=== PATIENT | female | born 1940 | race Caucasian/White ===

== ENCOUNTER 2021-05-27 19:14 | Emergency (ER) | payer MEDICARE, SELFPAY ==
[2021-05-27 19:27] VITALS: BP 159/80; PULSE 90; RESP 18; TEMP 36.6; O2SAT 98
--- NOTE | 2021-05-27 19:30 | DI.RAD_ITS ---
Exam(s) XR WRIST RT LIMITED XR WRIST RT COMPLETE EXAM: XR WRIST RT COMPLETE CLINICAL HISTORY: fall, pain, deformity TECHNIQUE: COMPARISON: CR,XR XR WRIST RT LIMITED from 05/27/2021 FINDINGS: Three views of the wrist were obtained initially and show comminuted moderately displaced fracture of the distal radius with an associated ulnar styloid fracture. Post reduction radiographs show improv ed reduction of the radial fracture fragments with the wrist and forearm in a splint. No additional fracture seen. IMPRESSION: RADIATION DOSE DELIVERED: Total DLP
--- NOTE | 2021-05-27 19:45 | W.ED.GENAD ---
Discharge Plan Disposition Patient Disposition: HOME Condition: Stable Discharge Details Clinical Impression: Closed fracture of right radius and ulna Primary Care Provider: Zbigniew Pretty ED Provider: Jasiel Pwoell Home Meds and New Rx's Prescriptions: No Action arnica Tincture TOPICAL PRN PRNRF: 0 Discharge Instructions Instructions: Wrist Fracture in Adults (ED) Additional Instructions: Keep splint intact and dry. Use sling for comfort. No use of the right hand until cleared. Please follow-up with orthopedics, call on Sunday. Please take acetaminophen (tylenol) - 650mg every 6 hours by mouth as needed for pain. Please take ibuprofen over the counter. Take 600mg by mouth every 6 hours as needed for pain. Return to the emergency department immediately for any worsening or new concerning symptoms Referrals: [facility] [Provider Group] Zbigniew Pretty [Primary Care Provider] - Discharge Data Discharge Date/Time-TO BE ENTERED AT DEPARTURE: 05/27/21 22:30 Medical Decision Making 81-year-old female here with mechanical trip and fall with injury to right wrist. No other injury sustained during fall. Patient does have deformity to right wrist. Patient neurovascular intact distally. X-ray of the wrist was reviewed interpreted by radiology: Comminuted fracture of the distal right radial metaphysis with 25 degrees volar angulation and about 4 mm posterior displacement of the distal fragments not 8 mm impaction dorsally. Intra-articular fracture comminution into the distal radial articular surface noted in the distal fragment. Comminuted ulnar styloid fracture demonstrated on 3 to 4 mm displacement. Carpal relationships are normal. Patient provided verbal informed consent to hematoma block, joint reduction and sugar tong splint. Patient was given fentanyl 100 mcg and Zofran 4 mg. She tolerated reduction and splinting well. Repeat x-ray was reviewed and interpreted by me: Improved alignment and improved angulation. Case was discussed with Dr. Carmona who will see the patient in follow-up. Patient was provided a sling. Usual customary discharge instructions were reviewed with the patient. HPI General Mode of arrival: ambulatory. Date/Time Provider Initiated Documentation: 05/27/21 19:43. Limitations to Documentation: no limitations. Information obtained by: patient. HPI Narrative: 81-year-old female presents with chief complaint of right wrist pain. Patient notes she tripped and fell and landed on outstretched hand just prior to arrival. Pain is moderate and worse with any movement of the wrist. Pain is constant since fall. She notes she did not hit her head or lose consciousness. She has no chest pain or abdominal pain. No back pain or neck pain. No pelvic or hip pain Related Data Home Medications Medication Instructions Recorded Confirmed arnica ml TOPICAL PRN PRN 05/27/21 Allergies Allergy/AdvReac Type Severity Reaction Status Date / Time No Known Allergies Allergy Unverified 05/27/21 19:33 General Stated Complaint: Orthopedic HERNANDO: 4 Review of Systems All systems reviewed & are unremarkable except as noted in HPI and below Constitutional Constitutional: Denies fever(s) Cardiovascular Cardiovascular: Reports as per HPI Respiratory Respiratory: Reports as per HPI Musculoskeletal Musculoskeletal: Reports as per HPI FORMERLY [facility], [facility]–1983 Social History Smoking/Tobacco Use Status: Never Smoking risk assessment performed?: Yes Drug use: Never Do you feel safe at home: Yes Do you feel safe in your relationship?: Yes Exam Const General: cooperative and healthy appearing Orientation: alert and awake HENNH Head: normocephalic and atraumatic Mouth: moist mucous membranes Eyes Conjunctivae: normal conjunctivae Sclera: normal sclerae EOM: EOM intact bilaterally Neck Neck: trachea midline and supple Resp Auscultation: clear to auscultation bilaterally, no rales, no rhonchi and no wheezes Cardio Jugular venous pressure: no JVD Rate: regular rate and not tachycardic Rhythm: regular rhythm GI Palpation: soft, not firm, no guarding, no masses, not rigid and nontender Back/Spine/Pelvis Cervical Spine: cervical ROM normal and No cervical spinal tenderness Thoracic/Lumbar Spine: No thoracic spinal tenderness and No lumbar spinal tenderness Pelvis: no pain with lateral compression Skin General skin exam: no rashes or lesions noted Neuro General: patient alert, patient awake, patient oriented x3 and tone normal Extrem General: no edema Right upper extremity: wrist Details: tenderness Location: of the distal radius, abnormal ROM Details: pain with active ROM during Details: with extension and with flexion, deformity and radial pulse present Psych Appearance: grossly normal Mental Status: mental status grossly normal Speech and Movement: speech and movement normal Course Vital Signs Vital signs: Vital Signs Temperature 36.6 C 05/27/21 19:27 Pulse 90 05/27/21 19:27 Respiratory Rate 18 05/27/21 19:27 Blood Pressure 159/80 H 05/27/21 19:27 Pulse Oximetry 98 05/27/21 19:27 Temperature 36.6 C 05/27/21 19:27 Temperature Source Skin 05/27/21 19:27 Pulse 90 05/27/21 19:27 Respiratory Rate 18 05/27/21 19:27 Blood Pressure 159/80 H 05/27/21 19:27 Pulse Oximetry 98 05/27/21 19:27 Oxygen Delivery Method Room Air 05/27/21 19:27 Oxygen Flow Rate 0 05/27/21 19:27 Pain Level 10 05/27/21 19:27
[2021-05-27] MEDS: Ibuprofen 600 MG TAB PO (19:48)
[2021-05-27 20:44] VITALS: BP 149/78; PULSE 84; O2SAT 97
[2021-05-27 20:45] VITALS: O2SAT 95
[2021-05-27 20:47] VITALS: BP 86/64; PULSE 84
--- NOTE | 2021-05-27 20:52 | DI.VRAD_ITS ---
PROCEDURE INFORMATION: Exam: XR Right Wrist Exam date and time: 05/27/2021 7:44 PM Age: 81 years old Clinical indication: Other: Fall, pain, wrist deformity; Patient HX: Fall, pain, wrist deformity TECHNIQUE: Imaging protocol: XR Right wrist. Views: 3 or more views. Total images: 3 COMPARISON: No relevant prior studies available. FINDINGS: Bones/joints: Osteopenia. Comminuted fracture of the distal right radial metaphysis with 25 degrees apex volar angulation and about 4 mm posterior displacement of the distal fragments, and about 8 mm impaction dorsally. Intra-articular fracture comminution into the distal radial articular surface noted in the distal fragment. Comminuted ulnar styloid fracture demonstrating about 3-4 mm displacement. No carpal bone fractures are identified. Carpal relationships are normal. Soft tissues: Moderate soft tissue swelling around the wrist. IMPRESSION: Distal right radial and ulnar fractures as detailed above. Dictated and Authenticated by: Mina Ramon MD. Ordering:BECCA Weathers MD
[2021-05-27 21:01] VITALS: BP 131/104; PULSE 88
[2021-05-27] MEDS: Ondansetron 4 MG/2 ML VIAL IVP (21:46)
[2021-05-27] MEDS: fentaNYL 100 MCG/2 ML VIAL IVP (21:46)
--- NOTE | 2021-05-27 22:19 | DI.VRAD_ITS ---
PROCEDURE INFORMATION: Exam: XR Right Wrist Exam date and time: 05/27/2021 9:57 PM Age: 81 years old Clinical indication: Other: Post reduction TECHNIQUE: Imaging protocol: XR Right wrist. Views: 1 or 2 views. Total images: 2 COMPARISON: CR XR WRIST RT COMPLETE 05/27/2021 8:19 PM FINDINGS: Tubes, catheters and devices: Plaster splint in place. Bones/joints: The previously identified comminuted distal right radial fracture demonstrates improved post reduction alignment although there is about 20 degrees residual apex volar angulation. The mildly displaced comminuted ulnar styloid avulsion fractures unchanged. Soft tissues: Soft tissue swelling around the wrist. IMPRESSION: Plaster splint in place with mild improvement in post reduction alignment although there is still about 20 degrees apex volar angulation in the distal radial fracture. Dictated and Authenticated by: Mina Ramon MD. Ordering:BECCA Weathers MD
[2021-05-27 22:37] VITALS: BP 131/77; PULSE 88; RESP 18; TEMP 36.6; O2SAT 95
== END 2021-05-27 22:30 | disposition home or self-care (01) ==
PROVIDERS: Emergency Provider Student in an Organized Health Care Education/Training Program; PCP Internal Medicine
DX: S52.591A Other fractures of lower end of right radius, initial encounter for closed fracture (principal); S52.691A Other fracture of lower end of right ulna, initial encounter for closed fracture; W01.0XXA Fall on same level from slipping, tripping and stumbling without subsequent striking against object, initial encounter
CPT/HCPCS: 29125; 96374; 96375; 99284; 73100; 73110; J2405; J3010

== ENCOUNTER → 2021-05-30 12:58 | Outpatient (BNVA) | payer MEDICARE, SELFPAY | PROVIDERS: PCP Internal Medicine; Referring Provider Student in an Organized Health Care Education/Training Program | DX: S52.91XA Unspecified fracture of right forearm, initial encounter for closed fracture (principal); S52.201A Unspecified fracture of shaft of right ulna, initial encounter for closed fracture; W19.XXXA Unspecified fall, initial encounter | CPT/HCPCS: 99214 ==

== ENCOUNTER 2021-05-30 16:04 | Outpatient (REF) | payer MEDICARE, SELFPAY ==
[2021-05-30 16:32] LABS: Source Nasal/Nares
[2021-05-30 17:33] LABS: COVID-19 PCR Negative (Negative)
== END 2021-05-30 16:05 | disposition home or self-care (01) ==
LOC: LBN 16:04
PROVIDERS: PCP Internal Medicine; Visit Provider Student in an Organized Health Care Education/Training Program
DX: Z20.822 Contact with and (suspected) exposure to COVID-19 (principal); Z01.818 Encounter for other preprocedural examination
CPT/HCPCS: 87635

== ENCOUNTER 2021-05-31 11:08 | Day surgery (SDC) | payer MEDICARE, SELFPAY ==
--- NOTE | 2021-05-31 10:34 | W.PM.DSUDISC ---
Discharge Plan Disposition Patient Disposition: HOME Condition: Good Discharge Details Reason For Visit: Closed fracture of right distal radius and ulna Attending Provider: Tyshawn Carmona Primary Care Provider: Zbigniew Pretty Home Meds and New Rx's Prescriptions: No Action arnica Tincture TOPICAL PRN PRNRF: 0 Discharge Instructions Additional Instructions: Wrist Fracture Reduction Discharge Instructions Activity: You should keep the hand/wrist elevated as much as possible for the first few days. You may use the other fingers as tolerated but avoid trying to do too much too soon. You may perform light activities with the splint in place. Dressing/Cast: Your cast should stay in place at all times. Do NOT get it wet. Medications: - You should take Tylenol and Ibuprofen for baseline pain control. - You may apply ice over the wrist, just double bag so it doesn't get wet. Follow-up: 10-14 days Referrals: Tyshawn Carmona MD [ [facility] STAFF PHYSICIAN] - Equipment/Supplies: Cast Activity:: Activity as Tolerated Remove Dressings/Wound Care:: Do Not Remove Shower/Bathe:: Cover Diet:: As Tolerated Discharge Orders Discharge Orders: Discharge Order (Routine); Ordered 05/31/21 Ordered By: Josie Cervantes DS: Diagnosis Discharge Diagnosis (1) Closed fracture of right radius and ulna: Status: Acute
[2021-05-31 11:15] VITALS: BP 148/81; PULSE 75; RESP 16; TEMP 36.2; O2SAT 99
--- NOTE | 2021-05-31 11:30 | DI.RAD_ITS ---
Exam(s) XR WRIST RT LIMITED EXAM: XR WRIST RT LIMITED CLINICAL HISTORY: closed reduction right wrist fracture TECHNIQUE: 2D and realtime digital imaging was performed. COMPARISON: CR,XR XR WRIST RT LIMITED from 05/27/2021 FINDINGS: C-arm fluoroscopy was utilized by Dr. Carmona during reported closed reduction fracture of the dista l radius. Hard copy shows the wrist in a lateral view with bony detail obscured by cast. Improved r eduction of fracture fragments noted. IMPRESSION: RADIATION DOSE DELIVERED: albaro Branch=.028 mGy Total DLP
--- NOTE | 2021-05-31 11:32 | W.ANESPRE ---
General Info Date of Service Date Performed: 05/31/21 Height: 5 ft 2 in Weight: 50.802 kg Body Mass Index (BMI): 20.5 Surgical Procedure: Operation Date: 05/31/21 14:40 Proposed Procedures Side Surgeon p Closed Reduction of Right Wrist fracture with casting Right Tyshawn Carmona MD Meds Allergies and Home Medications Allergies Allergy/AdvReac Type Severity Reaction Status Date / Time No Known Allergies Allergy Verified 05/31/21 11:24 Home Medication Medication Instructions Recorded arnica ml TOPICAL PRN PRN 05/27/21 Current Visit Medications: Current Medications Generic Name Dose Route Start Last Admin Trade Name Freq PRN Reason Stop Dose Admin Ringer's Solution 1,000 mls @ 80 mls/hr 05/31/21 06:00 IV 06/29/21 23:59 INFUSION RADHA IV Miscellaneous Supplies 1 each 05/31/21 06:00 Iv Access IV 06/29/21 23:59 DIRECTED RADHA Sodium Chloride 0 ml 05/31/21 06:00 Normal Saline Flush 10 Ml Syr IV 06/29/21 23:59 PRN PRN Sodium Chloride 0 ml 05/31/21 06:00 Normal Saline 10 Ml Vial IJ 06/29/21 23:59 DIRECTED PRN Sterile Water 0 ml 05/31/21 06:00 Water,Injection,Sterile 10 Ml Vial IJ 06/29/21 23:59 DIRECTED PRN PFSH Active Problems Active Problems: Problem Status Onset Code Closed fracture of right radius and ulna S52.91XA, S52.201A Surgical History Surgical History (Updated 05/30/21 @ 15:06 by Elbert Davalos) History of section Tobacco Smoking/Tobacco Use Status: Never Alcohol Alcohol Intake: never Substance Use Substance use: Never Substance use type: does not use Vital Signs and Lab Results Vital Signs Most Recent Vital Signs in EMR: Most Recent Vital Signs Temp Pulse Resp BP Pulse Ox 36.2 C L 75 16 148/81 H 99 05/31/21 11:15 05/31/21 11:15 05/31/21 11:15 05/31/21 11:15 05/31/21 11:15 Lab Results Blood Type / Crossmatch: No Data to Display Complete Blood Count: No Data to Display Complete Metabolic Panel: No Data to Display Liver Function Panel: No Data to Display Coagulation Panel: No Data to Display Cardiac Panel: No Data to Display Arterial Blood Gas: No Data to Display Venous Blood Gas: No Data to Display Pancreas Panel: No Data to Display Thyroid Panel: No Data to Display Infectious Disease: Coronavirus (COVID-19)(PCR) Negative (Negative) 05/30/21 13:35 05/30/21 Coronavirus 2019 Source Nasal/Nares 05/30/21 13:35 05/30/21 Blood Cultures: No Data to Display Toxicology Panel: No Data to Display Anesthesia Assessment and Plan Anesthesia History Personal History: No History of Anesthesia Complications Family History: No Family History of Anesthesia Complications Exercise Tolerance Exercise Tolerance: Metabolic Equivalents<4 Pertinent Negatives Pertinent Negatives: No Symptoms of GERD, No Major Cardiovascular Symptoms or Complaints and No Major Pulmonary Symptoms or Complaints Cardiac & Pulmonary Exam Cardiac Exam: Normal S1/S2 Heart Sounds Pulmonary Exam: Clear Bilateral Breath Sounds Airway Exam Known Difficult Airway: No Mallampati Class: 2 Mouth Opening: Normal (> 3cm) Thyromental Distance: Greater than 3 cm Neck Range of Motion: Full ROM Neck Circumference: Normal Teeth Condition: Removable Dentures/Plates Upper (Upper flipper tooth, lower plate) ASA Classification ASA Score: ASA 1 Emergency Case?: No NPO Status NPO Status: NPO Clears >2 hours, Solids >8 hours Anesthesia Plan Resuscitation Status: Full Code Anesthesia Technique: General Anesthesia Airway Planned: Natural Airway Monitors Used: Standard Monitors
[2021-05-31] MEDS: Lactated Ringers 1,000 ML 80 ML IV (11:36)
[2021-05-31 11:40] VITALS: BMI 20.5
[2021-05-31] MEDS: Bupivacaine 0.5% Pres-Free 30 ML VIAL (12:13)
[2021-05-31 12:20] VITALS: BP 135/74; PULSE 89; RESP 15; TEMP 36.1; O2SAT 99
--- NOTE | 2021-05-31 12:49 | W.ANESPOSTOP ---
Postoperative Evaluation Date, Time and Location Date Performed: 05/31/21 Time Performed: 12:49 Patient Location: Day Surgery Unit Vital Signs Most Recent Imported Vital Signs: Most Recent Vital Signs Temp Pulse Resp BP Pulse Ox 36.1 C L 89 15 135/74 99 05/31/21 12:20 05/31/21 12:20 05/31/21 12:20 05/31/21 12:20 05/31/21 12:20 Pain Score Most Recent Pain Score: Most Recent Pain Score Pain Level 0 05/31/21 12:20 Assessment Mental Status: Awake (Alert & Oriented to Patient Baseline) Airway and Respiratory Function: Patent airway with normal (patient baseline) respiratory exam Cardiovascular Function: Hemodynamically Stable Hydration Status: Adequately Hydrated Nausea & Vomiting: No Nausea or Vomiting Pain: Pt. Denies Any Pain Peripheral Nerve Block: Patient did not receive a nerve block
[2021-05-31 12:50] VITALS: BP 136/77; PULSE 71; RESP 17; TEMP 36.5; O2SAT 99
--- NOTE | 2021-05-31 14:08 | W.PM.OP ---
Date of service: 05/31/21 Time of Service: 12:31 Operative Note Operative Note DATE OF PROCEDURE: 05/31/21 PRE-OP DIAGNOSIS: Right Distal Radius Fracture POST-OP DIAGNOSIS: same PROCEDURE: CLosed Reduction and Casting of Right Distal Radius Fracture SURGEON: Tyshawn Carmona ANESTHESIA TYPE: General:No Airway Refer to Anesthesia Record ESTIMATED BLOOD LOSS: 0 TOURNIQUET TIME: 0 COMPLICATIONS: None Patient was transported to: PACU Patient's condition: stable Indications: Shauna is an 81-year-old who fell over the weekend suffering a displaced distal radius fracture. And attempted closed reduction was performed which improved the position of the fracture but it still remained with about 30 degrees of dorsal angulation. Therefore, discussed treatment options with Shauna and I recommend that we attempt a closed reduction and casting of the right wrist fracture. I discussed this with her in the office. I reviewed the technical features of the case. I also discussed the risk to include pain, stiffness, cast complications, loss of reduction, malunion. Despite these risk, she elects to proceed. Findings: There was a displaced distal radius fracture which was reduced with gentle traction and finger traps. A well molded cast was applied. Procedure Description: Shauna was greeted in the preoperative holding area. Her identity was confirmed the correct side was identified and marked. The consent was reviewed the patient and signed. She was taken to the operating room and placed in the supine position. A general, uninstrumented airway, anesthetic was administered. A timeout was performed for safe surgery. Her previous splint was removed and a hematoma block was administered into the fracture using 10 cc of 0.5% bupivacaine. A gentle closed reduction was then performed using exaggeration of the deformity and some distal traction countertraction and reduction. This seemed to petty on the volar piece and showed significant provement with reduction base of the x-rays. She was then placed in finger traps traction to assist and casting. While in the finger traps x-ray showed minimal dorsal displacement which was easily correctable. I then applied a short arm cast. This was well-padded. Once the cast was in place I then applied a three-point mold along with an ulnar border. X-ray was utilized to confirm appropriate reduction. The cast was snug but given the duration of time from the injury I did not bivalve the cast. She had A refill less than 2 seconds and good oxygen saturation on the pulse oximetry from that finger. She was then taken back to the PACU in stable condition.
== END 2021-05-31 13:15 | disposition home or self-care (01) ==
LOC: SUR 11:08
PROVIDERS: PCP Internal Medicine; Visit Provider Student in an Organized Health Care Education/Training Program
PROC: (CPT 25605; principal; 2021-05-31 14:30)
DX: S52.591A Other fractures of lower end of right radius, initial encounter for closed fracture (principal); W19.XXXA Unspecified fall, initial encounter
CPT/HCPCS: 25605; 73100; J1885

== ENCOUNTER 2021-06-06 13:52 | Outpatient (CLI) | payer MEDICARE, SELFPAY ==
--- NOTE | 2021-06-06 13:00 | DI.RAD_ITS ---
Exam(s) XR WRIST RT LIMITED EXAM: XR WRIST RT LIMITED INDICATION: CR right wrist fx. COMPARISON: CR,XR XR WRIST RT LIMITED from 05/27/2021 CR,XR XR WRIST RT COMPLETE from 05/27/2021 RF XR WRIST RT LIMITED from 05/31/2021 TECHNIQUE: 2D digital imaging was performed. FINDINGS: Two views were performed with the wrist in a cast. The distal radial fracture remains visible and ap pears unchanged in alignment when compared with post reduction in image. No ulnar styloid fractures also visible. DATA REPOSITORY: RADIATION DOSE DELIVERED:
== END 2021-06-06 13:53 | disposition home or self-care (01) ==
LOC: DIORS 13:54
PROVIDERS: PCP Internal Medicine; Referring Provider Internal Medicine; Visit Provider Physician Assistant
DX: S52.91XD Unspecified fracture of right forearm, subsequent encounter for closed fracture with routine healing; S52.201D Unspecified fracture of shaft of right ulna, subsequent encounter for closed fracture with routine healing; X58.XXXD Exposure to other specified factors, subsequent encounter
CPT/HCPCS: 73100

== ENCOUNTER 2021-06-13 14:40 | Outpatient (CLI) | payer MEDICARE, SELFPAY ==
--- NOTE | 2021-06-13 13:15 | DI.RAD_ITS ---
Exam(s) XR WRIST RT LIMITED EXAM: XR WRIST RT LIMITED CLINICAL HISTORY: follow up. TECHNIQUE: 2D digital imaging was performed. COMPARISON: CR,XR XR WRIST RT LIMITED from 05/27/2021 CR,XR XR WRIST RT LIMITED from 05/27/2021 CR XR WRIST RT LIMITED from 06/06/2021 FINDINGS: These in cast views the fracture lines distal radius remains visible and are again noted to violate t he radiocarpal joint. However, no significant displacement and no carpal dislocation evident. Fract ured ulnar styloid also again noted. IMPRESSION: DATA REPOSITORY: RADIATION DOSE DELIVERED:
== END 2021-06-13 14:41 | disposition home or self-care (01) ==
LOC: DIORS 14:40
PROVIDERS: PCP Internal Medicine; Referring Provider Internal Medicine; Visit Provider Physician Assistant Surgical
DX: S52.591D Other fractures of lower end of right radius, subsequent encounter for closed fracture with routine healing (principal); S52.691D Other fracture of lower end of right ulna, subsequent encounter for closed fracture with routine healing; X58.XXXD Exposure to other specified factors, subsequent encounter
CPT/HCPCS: 73100

== ENCOUNTER 2021-06-27 14:42 | Outpatient (CLI) | payer MEDICARE, SELFPAY ==
--- NOTE | 2021-06-27 14:15 | DI.RAD_ITS ---
Exam(s) XR WRIST RT LIMITED EXAM: XR WRIST RT LIMITED CLINICAL HISTORY: R wrist fx. TECHNIQUE: 2D digital imaging was performed. COMPARISON: No exams were available for comparison FINDINGS: Patient's wrist is in a cast. BONES: There has been no change in alignment of the distal radial and ulnar fractures. No new fractu re visualized. No bony destructive lesion is seen. JOINTS: The carpal bones are normally aligned. SOFT TISSUE: Normal. IMPRESSION: Stable distal radial and ulnar fractures. DATA REPOSITORY: RADIATION DOSE DELIVERED:
== END 2021-06-27 14:43 | disposition home or self-care (01) ==
LOC: DIORS 14:42
PROVIDERS: PCP Internal Medicine; Referring Provider Internal Medicine; Visit Provider Physician Assistant
DX: S52.591D Other fractures of lower end of right radius, subsequent encounter for closed fracture with routine healing (principal); S52.691D Other fracture of lower end of right ulna, subsequent encounter for closed fracture with routine healing; X58.XXXD Exposure to other specified factors, subsequent encounter
CPT/HCPCS: 73100

== ENCOUNTER 2021-07-18 13:27 | Outpatient (CLI) | payer MEDICARE, SELFPAY ==
--- NOTE | 2021-07-18 12:45 | DI.RAD_ITS ---
Exam(s) XR WRIST RT LIMITED EXAM: XR WRIST RT LIMITED CLINICAL HISTORY: R wrist fx. TECHNIQUE: 2D digital imaging was performed. COMPARISON: CR XR WRIST RT LIMITED from 06/27/2021 FINDINGS: Cast has been removed Stable appearance of the comminuted fracture site in the distal radius which violates the radiocarpal joint. Fracture lines are still evident. Fracture of the ulnar styloid also again noted. IMPRESSION: DATA REPOSITORY: RADIATION DOSE DELIVERED:
== END 2021-07-18 13:28 | disposition home or self-care (01) ==
LOC: DIORS 13:28
PROVIDERS: PCP Internal Medicine; Referring Provider Internal Medicine; Visit Provider Physician Assistant
DX: S52.591D Other fractures of lower end of right radius, subsequent encounter for closed fracture with routine healing; S52.691D Other fracture of lower end of right ulna, subsequent encounter for closed fracture with routine healing; X58.XXXD Exposure to other specified factors, subsequent encounter
CPT/HCPCS: 73100

== ENCOUNTER 2021-08-29 13:21 | Outpatient (CLI) | payer MEDICARE, SELFPAY ==
--- NOTE | 2021-08-29 13:00 | DI.RAD_ITS ---
Exam(s) XR WRIST RT LIMITED EXAM: XR WRIST RT LIMITED CLINICAL HISTORY: RIGHT RADIUS/ULNA FRACTURE. TECHNIQUE: 2D digital imaging was performed. COMPARISON: CR XR WRIST RT LIMITED from 07/18/2021 FINDINGS: Again noted are the previously described fractures of distal radius and ulna. There has been further healing at the transverse fracture site in the distal radius with fracture line less evident and scl erosis evident. The fracture of the base of the ulnar styloid appears unchanged. IMPRESSION: DATA REPOSITORY: RADIATION DOSE DELIVERED:
== END 2021-08-29 13:22 | disposition home or self-care (01) ==
LOC: DIORS 13:25
PROVIDERS: PCP Internal Medicine; Referring Provider Internal Medicine; Visit Provider Student in an Organized Health Care Education/Training Program
DX: S52.591D Other fractures of lower end of right radius, subsequent encounter for closed fracture with routine healing (principal); S52.691D Other fracture of lower end of right ulna, subsequent encounter for closed fracture with routine healing; X58.XXXD Exposure to other specified factors, subsequent encounter
CPT/HCPCS: 73100